=== PATIENT | male | born 1980 | race Caucasian/White ===

== ENCOUNTER 2020-10-14 06:57 | Emergency (ER) | payer SELFPAY ==
[2020-10-14 06:59] VITALS: BP 149/98; PULSE 89; RESP 16; TEMP 36.9; O2SAT 99; BMI 31.8
--- NOTE | 2020-10-14 07:16 | ED.VIS.GEN ---
History of Present Illness Chief Complaint: GI Bleed Detail of Chief Complaint: Hemorrhoid pain and bleeding Informant: Patient Onset: - - Acute on chronic Current Severity: Mild Maximum Severity: Moderate Narrative: Patient presents with increased pain and bleeding from his hemorrhoids. He states he has had hemorrhoids for probably a year or more. He will have intermittent flares of pain and bleeding. He states symptoms seem to be worse today. He will sometimes use Preparation H ointment topically. He denies some mild abdominal pain. No fevers or chills. - Past Medical History (1) Asthma Status: Chronic Past Medical History - Allergies and Home Meds Allergies/Adverse Reactions: Allergies No Known Allergies Allergy (Verified 10/14/20 06:58) Primary Care Physician: Rivera Perez MD [STAFF PHYSICIAN] - Prior records reviewed: Yes Lives: Spouse/ Significant Other Smoking Status: Never smoker Review of Systems General: Denies: Chills, Fever Eyes: Denies: Visual changes - bilaterally ENT: Denies: Bilateral ear pain Cardiovascular: Denies: Chest pain Respiratory: Denies: Dyspnea, Cough Gastrointestinal: Reports: Abdominal pain, - - Bleeding hemorrhoids. Denies: Vomiting, Diarrhea Genitourinary: Denies: Dysuria Musculoskeletal: Denies: Swelling, Extremity Pain Skin: Denies: Rash Hematologic: Denies: Easy bruising, Easy bleeding Allergy: Denies: Uticaria Physical Exam Vital Signs/Narrative: Vital Signs Temp Pulse Resp BP Pulse Ox 10/14/20 06:59 98.5 F 89 16 149/98 H 99 Inital Vital Signs reviewed: Yes General: Well nourished, Well developed Head: Normocephalic Neck: Supple Cardiovascular: Regular rate, Regular rhythm Respiratory: No distress, CTA bilaterally Abdomen: Soft, Nontender, Hypoactive bowel sounds Rectal: - - 1 external slightly enlarged hemorrhoid. No evidence of thrombosis. No active bleeding. Tenderness with internal exam but no palpable hemorrhoids noted. No blood on gloved finger. Extremities: Nontender Skin: Normal color Neurological: Alert, Oriented x3 Psychological: Normal affect Diagnostic/Tx/Re-eval - Medical Decision Making Patient be written for Anusol HC suppositories. He is referred to surgery for follow-up if this continues to be a problem. At this time I do not see evidence of thrombosed hemorrhoid that needs further investigation or treatment. ED Disposition - Plan for ED Patient: Disposition: Home or Assisted Living Diagnosis: Hemorrhoids Instructions: ED Hemorrhoids Prescriptions: Hydrocortisone [Anusol Hc] 25 mg RECTAL BID PRN PRN #10 suppos. PRN Reason: Hemorrhoids Transmission Status: Pending to [id number] Referrals: Rivera Perez MD [STAFF PHYSICIAN] - Annabella Escalante MD [STAFF PHYSICIAN] - As Needed
--- NOTE | 2020-10-14 07:55 | ED.RN ---
PT GIVEN WRITTEN AND VERBAL DISCHARGE INSTRUCTIONS, AND EDUCATED ON HOME GOING PRESCRIPTIONS. PT EDUCATED ON FOLLOW UP. PT VERBALIZES UNDERSTANDING AND DENIES ANY FURTHER QUESTIONS.
== END 2020-10-14 07:56 | disposition home or self-care (01) ==
PROVIDERS: Emergency Provider Emergency Medicine
DX: K64.9 Unspecified hemorrhoids (principal)
CPT/HCPCS: 99282

== ENCOUNTER 2021-02-09 03:29 | Emergency (ER) | payer SELFPAY ==
[2021-02-09 03:32] VITALS: BP 163/97; PULSE 72; RESP 18; TEMP 36.6; O2SAT 97; BMI 33.3
--- NOTE | 2021-02-09 03:33 | ED.RN ---
CALLED FOR EKG PER RN REQUEST, NO OLD EKGS IN MUSE
--- NOTE | 2021-02-09 03:50 | EKG12_ITS ---
Test Reason : CP Blood Pressure : / mmHG Vent. Rate : 071 BPM Atrial Rate : 071 BPM P-R Int : 192 ms QRS Dur : 088 ms QT Int : 336 ms P-R-T Axes : 042 034 014 degrees QTc Int : 365 ms Normal sinus rhythm Normal ECG Confirmed by SHIRA ROBERTO, BOUCHRA ([id number]), field map editor LENA MURPHY ([id number]) on 02/15/2021 9:20:46 AM Referred By: KIM Confirmed By:BOUCHRA SILVA MD
--- NOTE | 2021-02-09 03:50 | RAD_ITS ---
STUDY: X-RAY CHEST REASON FOR EXAM: Male, 40 years old. Chest pain TECHNIQUE: Single AP portable view of the chest. COMPARISON: None. FINDINGS: The lungs are clear and expanded. There is no demonstrated pleural abnormality. There is mild cardiac enlargement. Normal mediastinum and jaquan. Normal visualized pulmonary arteries. Normal visualized aortic arch and descending thoracic aorta. Normal visualized thoracic spine. Normal visualized ribs, clavicles, and shoulders. There is no demonstrated abnormality of the visualized soft tissue structures of the upper abdomen. RAD/Chest 1 View (Portable) IMPRESSION: Cardiac enlargement no visualized focal infiltrate. Electronically Signed: Maria Eugenia Bernard MD at 4:45 EDT Tel , Service support ,
[2021-02-09 04:09] LABS: Anion Gap 5 (5-15); BUN 21 mg/dL (7-18); BUN/Creat Ratio 18.6 RATIO (10-20); Calcium,Total 8.9 mg/dL (8.5-10.1); Chloride 109 mmol/L (98-107); Creatinine, Serum 1.13 mg/dL (0.70-1.30); EST Glomerular Filtration Rate 77 mL/min (>60); Est Glom Filt Rate - Afr Amer 93 mL/min (>60); Estimated Creatinine Clearance 96.33 ml/min; Glucose 111 mg/dL (74-106); Potassium 3.8 mmol/L (3.5-5.1); Sodium Level 141 mmol/L (136-145); Troponin-I HS 4.5 pg/mL (3.0-78.5)
[2021-02-09 04:37] LABS: Absolute Neutrophil Count 3.6 X10^3/uL (2.0-7.7); Basophil# 0.05 X10^3/uL; Basophil% 0.8 % (0-1); Eosinophil# 0.28 X10^3/uL; Eosinophils% 4.2 % (0-5); Hematocrit 39.8 % (40-54); Hemoglobin 12.4 g/dL (13.0-16.5); Lymphocyte % 28.7 % (19-41); Mean Corp Hgb Conc 31.2 g/dL (32-36); Mean Corpuscular Hgb 26.3 pg (27.0-32.0); Mean Corpuscular Volume 84.5 fL (80-94); Monocyte# 0.74 X10^3/uL; Monocyte% 11.2 % (0-10); NRBC Flagged by Analyzer 0 % (0-5); Neutrophil # 3.64 X10^3/uL (2.7-7.7); Neutrophil % 54.9 % (47-70); Platelet Count 251 K/mm3 (150-450); RBC Distribution Width CV 14.2 % (11.6-14.6); RBC Distribution Width SD 43.4 fl (35.1-43.9); Red Blood Count 4.71 M/mm3 (4.6-6.2); White Blood Count 6.6 K/mm3 (4.4-11.0)
--- NOTE | 2021-02-09 04:48 | ED.VIS.CHEST ---
HPI History of Present Illness Chief Complaint: Chest Pain Informant: patient Narrative Narrative: Patient is a 40-year-old male with a past medical history of hyperlipidemia who presents to the emergency department for chest pain. It is substernal. He rates the pain as a 5 out of 10 currently. He states he has had this before in the past. The last episode was a few weeks prior. He is never had a work-up for this. Tonight it woke him up out of his sleep. He does not know aggravating or relieving factors. No significant shortness of breath with this. He has no history of heart attacks, thromboembolism. He denies leg swelling or calf pain. No family history of cardiac disease at a young age. He denies any recent illness including any cough, cold, congestion or fever/chills. No abdominal pain or back pain. He has not taken anything for this. PFSH PFSH Home Medications hydrocortisone acetate 25 mg RECTAL BID PRN PRN #10 suppos. 10/14/20 [Rx Last Taken Unknown] Allergy/AdvReac Type Severity Reaction Status Date / Time No Known Allergies Allergy Verified 02/09/21 03:34 Surgical History (Updated 02/09/21 @ 03:36 by Tina Nicole) H/O hemorrhoidectomy Social History Smoking Status: Never smoker ROS ROS ED Constitutional Constitutional ED: Denies chills or fever(s) Eyes Eyes: Denies change in vision ENT ENT ED: Denies epistaxis or rhinorrhea Cardiovascular Cardiovascular: Reports chest pain; Denies palpitations Respiratory/Chest Respiratory/Chest: Denies cough, dyspnea or dyspnea on exertion Gastrointestinal Gastrointestinal: Denies abdominal pain, diarrhea, nausea or vomiting Musculoskeletal Musculoskeletal: Denies back pain or neck pain Integumentary Denies rash Neurologic Neurologic: Denies dizziness, headache(s) or weakness EXAM Physical Exam Const Vital Signs: 02/09/21 03:32 02/09/21 05:00 02/09/21 05:53 Temperature 97.9 F Temperature Source Temporal Pulse Rate 72 66 68 Respiratory Rate 18 18 17 Blood Pressure 163/97 H 150/96 H 132/74 H Blood Pressure Mean 119 114 Pulse Ox 97 97 95 Oxygen Delivery Method Room Air Room Air 02/09/21 06:26 Temperature Temperature Source Pulse Rate Respiratory Rate 16 Blood Pressure Blood Pressure Mean Pulse Ox Oxygen Delivery Method Positive well nourished and well developed General Appearance ED: well developed and NAD HEENT Reports normocephalic, head/scalp atraumatic and moist mucous membranes Eyes PERRL and EOMs intact bilaterally Neck supple Chest Wall inspection of chest normal Resp normal respiratory effort and clear to auscultation bilaterally Auscultation: Negative for rales, rhonchi or wheezes Cardio regular rate, regular rhythm and no murmurs GI normal to inspection, nondistended, normoactive bowel sounds and non-tender Palpation: soft; Negative for guarding or rebound tenderness present Extremity normal to inspection General Extremety ED: Negative for edema or tenderness General Extremity: Negative for edema Neuro no sensory deficits noted Sensorium / Orientation: alert Motor Exam: strength 5/5 throughout Psych mental status grossly normal Skin no rashes or lesions noted Heart Score History: Slightly/Non-Suspicious ECG: Normal Age: </= 45 years Risk Factors: 1 or 2 Risk Factors Score: 1 MDM MDM MDM Narrative Medical decision making narrative: Patient presents to the emergency department for chest pain. On arrival to the ED he is mildly hypertensive otherwise normal vital signs. EKG obtained upon arrival which did not reveal any signs of acute ischemia or arrhythmia. Chest x-ray obtained as well as basic lab work. On examination he is resting comfortably. Patient is not hypoxic or tachycardic. He has no DVT/PE risk factors. On reexamination patient states he is improving. This was without any treatment. His lab work did not show a high white blood cell count. He is mildly anemic with a hemoglobin of 12.4. No significant electrolyte abnormality. Troponin well within normal limits. Chest x-ray showed mild cardiomegaly but no other acute process. Patient has a low heart score. Given the fact he is significantly improving at this time I believe he is stable for discharge. I did make a cardiology referral but he wants to follow-up with the [facility] as he just got full insurance approved through them. I did give him a cardiology name of With the [facility] as well as at [facility] in case he cannot get in. If he develops any worsening symptoms he needs to return back to the emergency department for further evaluation and management. At this time I have low concern for acute coronary syndrome, thromboembolism, aortic catastrophe. Patient has been hypertensive and this does need to be closely monitored and he may require being started on medication for this if it continues to be high outside of the ED. This was all discussed with the patient. He understands and is agreeable this plan. All questions were answered. Lab Data Labs: Laboratory Results - last 24 hr 02/09/21 02/09/21 03:43 03:43 WBC 6.6 RBC 4.71 Hgb 12.4 L Hct 39.8 L MCV 84.5 MCH 26.3 L MCHC 31.2 L RDW Std Deviation 43.4 RDW Coeff of Nissa 14.2 Plt Count 251 MPV 10.0 Immature Gran % (Auto) 0.200 Neut % (Auto) 54.9 Lymph % (Auto) 28.7 [place] % (Auto) 11.2 H Eos % (Auto) 4.2 Baso % (Auto) 0.8 Absolute Neuts (auto) 3.6 Absolute Lymphs (auto) 1.90 Nucleated RBC % 0 Sodium 141 Potassium 3.8 Chloride 109 H Carbon Dioxide 27.0 Anion Gap 5 BUN 21 H Creatinine 1.13 Estim Creat Clear Calc 96.33 Est GFR (MDRD) Af Amer 93 Est GFR (MDRD) Non-Af 77 BUN/Creatinine Ratio 18.6 Glucose 111 H Calcium 8.9 Troponin I High Sens 4.5 Radiography Diagnostic Testing: Radiology Impression Chest X-Ray 02/09/21 03:50 IMPRESSION: Cardiac enlargement no visualized focal infiltrate. Electronically Signed: Maria Eugenia Bernard MD at 4:45 EDT Tel , Service support , EKG Initial EKG: Attestation: I personally reviewed and interpreted this EKG as follows: (Rate of 71 bpm and normal sinus rhythm. Normal intervals. Normal axis. No significant ST elevations or depressions. There is an S1 Q3 T3 pattern.) Discharge Plan Triage Chief Complaint: Chest Pain ED Provider: Terrance Javed Dx/Rx/DC Orders Clinical Impression: Chest pain, Elevated blood pressure reading Instructions: ED Chest Pain, Noncardiac Prescriptions: No Action hydrocortisone acetate 25 MG suppository 25 mg RECTAL BID PRN PRN (Reason: Hemorrhoids) Qty: 10 RF: 0 Primary Care Provider: Care Physician,No Primary Referrals: yessi white [Other] - 1 Day Aiden Schroeder MD [STAFF PHYSICIAN] - 1 Day (If unable to get into [facility] physician) Care Physician,No Primary [Primary Care Provider] - Disposition Disposition: Home, Self Care Discharge Date/Time: 02/09/21 06:26
[2021-02-09 05:00] VITALS: BP 150/96; PULSE 66; RESP 18; O2SAT 97
[2021-02-09 05:53] VITALS: BP 132/74; PULSE 68; RESP 17; O2SAT 95
[2021-02-09 06:26] VITALS: RESP 16
== END 2021-02-09 06:26 | disposition home or self-care (01) ==
PROVIDERS: Emergency Provider Emergency Medicine
DX: R07.9 Chest pain, unspecified (principal); R03.0 Elevated blood-pressure reading, without diagnosis of hypertension
CPT/HCPCS: 71045; 80048; 84484; 85025; 93005; 99283